=== PATIENT | male | born 1990 | race Hispanic/Latino ===

== ENCOUNTER 2017-09-18 17:36 | Emergency (ER) | payer SELFPAY ==
[~2017-09-18] VITALS: Ht 177.8 cm; Wt 138.3 kg
[2017-09-18] MEDS ORDERED: TRAMADOL HCL 50 MG TAB PO ONE (17:45)
[2017-09-18] MEDS ORDERED: CYCLOBENZAPRINE HCL 10 MG TAB PO ONE (17:45)
--- NOTE | 2017-09-18 18:56 | Diagnostic Imaging Report ---
EXAMINATION: CHEST 2 VIEWS INDICATION: Pain. COMPARISON: None FINDINGS: TUBES and LINES: None. LUNGS: Lungs are well inflated. Lungs are clear. There is no evidence of pneumonia or pulmonary edema. PLEURA: No pleural effusion or pneumothorax. HEART AND MEDIASTINUM: The cardiomediastinal silhouette is unremarkable. BONES AND SOFT TISSUES: No acute osseous lesion. Soft tissues are unremarkable. UPPER ABDOMEN: No free air under the diaphragm. IMPRESSION: No acute thoracic abnormality. Signed by: Dr. Blanche Kramer M.D. on 09/18/2017 6:52 PM
[2017-09-18 19:54] VITALS: BP 101/61
== END 2017-09-18 19:56 | disposition home or self-care (01) ==
LOC: ER 17:36
DX: M54.9 Dorsalgia, unspecified (principal); M79.1 Myalgia; S29.012A Strain of muscle and tendon of back wall of thorax, initial encounter
CPT/HCPCS: 71046; 99283